=== PATIENT | female | born 1970 | race Caucasian/White ===

== ENCOUNTER 2018-02-11 21:12 | Emergency (ER) | payer OTHER ==
[2018-02-11] MEDS ORDERED: IBUPROFEN 600 MG TABLET (FP) PO ONE ×2 (21:25→21:43)
--- NOTE | 2018-02-11 21:25 | PDOC ---
Rapid Medical Evaluation Chief Complaint: Pain, Acute Time Seen by Provider: 02/11/18 21:20 Medical Evaluation: Allergies Allergy/AdvReac Type Severity Reaction Status Date / Time Penicillins Allergy Verified 04/29/16 13:34 02/11/18 21:21 c/o left foot pain x 10 days. seen at [facility] 3 days ago. pain unrelieved with ibuprofen. last took ibuprofen yesterday PMHX: hypercholestremia, herniated disc PE: Patient alert ox3. left foot pedal edema + pedal pulse + sensation A: left foot pain P: xray ibuprofen
[2018-02-11 21:26] VITALS: BP 102/75; PULSE 85; TEMP 98; BMI 25.1
[2018-02-11] MEDS ORDERED: KETOROLAC TROMETHAMINE 60 MG/2 ML VIAL IM ONE (22:20)
[2018-02-11] MEDS ORDERED: KETOROLAC TROMETHAMINE 60 MG/2 ML VIAL ONE (22:21)
--- NOTE | 2018-02-11 22:23 | PDOC ---
History of Present Illness - General Chief Complaint: Pain Stated Complaint: LT LEG PAIN Time Seen by Provider: 02/11/18 21:20 - History of Present Illness Initial Comments: 37-year-old female presents for evaluation of atraumatic left foot and days she was treated with ibuprofen which really didn't help her. She points to the lateral aspect of the MTPJ as the area of her discomfort. 02/11/18 22:21 Past History - Past Medical History Allergies/Adverse Reactions: Allergies Allergy/AdvReac Type Severity Reaction Status Date / Time Penicillins Allergy Verified 02/11/18 21:22 Home Medications: Ambulatory Orders Quetiapine Fumarate [Seroquel -] 50 mg PO HS 07/21/14 Zolpidem Tartrate [Ambien] 10 mg PO HS 07/21/14 Methylprednisolone [Medrol Dose Osvaldo] 4 mg PO ASDIR #21 tablet 02/11/18 COPD: No Hypercholesterolemia: Yes Other medical history: neck - herniated disc - Surgical History Cholecystectomy: Yes - Immunization History Immunization Up to Date: Yes - Suicide/Smoking/Psychosocial Hx Smoking Status: No Smoking History: Unknown if ever smoked Have you smoked in the past 12 months: No Number of Cigarettes Smoked Daily: 0 Hx Alcohol Use: No Drug/Substance Use Hx: No Review of Systems - Review of Systems Musculoskeletal: Yes: Joint Pain All Other Systems: Reviewed and Negative *Physical Exam - Vital Signs Last Vital Signs Temp Pulse Resp BP Pulse Ox 98 F 85 20 102/75 98 02/11/18 21:22 02/11/18 21:22 02/11/18 21:22 02/11/18 21:22 02/11/18 21:22 - Physical Exam Comments: Left foot skin color and temperature are normal there is no swelling there is tenderness about the fourth and fifth MTPJ and there is pain with motion. There is no other areas of tenderness or thigh in The soft and nontender is a negative Homans sign and she's neurovascularly intact. 02/11/18 22:22 ED Treatment Course - Medications Given in the ED: ED Medications Discontinued Medications Generic Name Dose Route Start Last Admin Trade Name Freq PRN Reason Stop Dose Admin Ibuprofen 600 mg 02/11/18 21:25 02/11/18 21:46 Motrin - PO 02/11/18 21:26 600 mg ONCE ONE Administration Medical Decision Making - Medical Decision Making Give her a shot of Toradol in the emergency room reassess her pain and treat her for gout have her follow-up with her primary care physician the appropriate blood work and treatment options 02/11/18 22:22 02/11/18 22:30 Left foot and ankle x-rays are normal *DC/Admit/Observation/Transfer Diagnosis at time of Disposition: Gout attack - Discharge Dispostion Disposition: HOME Condition at time of disposition: Improved Decision to Admit order: No - Referrals Referrals: Jaret Griffiths [Primary Care Provider] - - Patient Instructions Printed Discharge Instructions: [facility] for Gout Additional Instructions: Since his most likely a gout attack I've given you a prescription for oral steroids which she can start in the morning it is extremely important few to follow-up with her primary care doctor who may decide to do blood work and discuss further treatment options return to the emergency room if you should symptoms worsen or go unresolved prior to follow-up - Post Discharge Activity
[2018-02-11] MEDS ORDERED: PANTOPRAZOLE 40 MG TABLET (FP) PO ONE (22:25)
[2018-02-11] MEDS ORDERED: PANTOPRAZOLE 40 MG TABLET (FP) ONE (22:27)
== END 2018-02-11 22:31 | disposition home or self-care (01) ==
LOC: JERFT 21:12
PROC: 3E0233Z Introduction of Anti-inflammatory into Muscle, Percutaneous Approach (ICD-10-PCS; principal; 2018-02-11)
DX: M10.9 Gout, unspecified (principal); E78.00 Pure hypercholesterolemia, unspecified; Z87.39 Personal history of other diseases of the musculoskeletal system and connective tissue
CPT/HCPCS: 73610-TC-LT-FY; 73630-TC-LT; 99281-25

== ENCOUNTER 2018-09-18 15:28 | Emergency (ER) | payer OTHER ==
[2018-09-18 15:38] VITALS: BP 100/60; PULSE 99; TEMP 98.4; BMI 28.2
--- NOTE | 2018-09-18 15:39 | PDOC ---
Rapid Medical Evaluation Time Seen by Provider: 09/18/18 15:34 Medical Evaluation: Allergies Allergy/AdvReac Type Severity Reaction Status Date / Time Penicillins Allergy Verified 02/11/18 21:22 09/18/18 15:34 The patient presents with a chief complaint of: headache, cough, chest pain, fever, chills, body aches I have performed a brief in-person evaluation of this patient; tachy, coarse bs to rt base Pertinent physical exam findings: ambulatory, in no respiratory distress I have ordered the following: influenza, cxr, motrin 600mg The patient will proceed to the ED for further evaluation. Discharge Disposition - Diagnosis Cough - Referrals Referrals: Jaret Griffiths [Primary Care Provider] - - Patient Instructions - Post Discharge Activity
[2018-09-18] MEDS ORDERED: IBUPROFEN 600 MG TABLET (FP) PO ONE ×2 (15:41→15:57)
--- NOTE | 2018-09-18 17:09 | PDOC ---
History of Present Illness - General Chief Complaint: Cold Symptoms Stated Complaint: Chest Pain Time Seen by Provider: 09/18/18 15:34 History Source: Patient Exam Limitations: No Limitations - History of Present Illness Initial Comments: 09/18/18 17:06 Patient came for evaluation of total body aches, fevers and chills, sore throat pain, moist productive cough of yellow phlegm, ear pain. 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 Did not receive flu shot this year. Timing/Duration: reports: just prior to arrival Severity: reports: mild, moderate Associated Symptoms: reports: fever/chills, headache, muscle aches, nasal congestion, nasal drainage, sore throat Past History - Travel Traveled outside of the country in the last 30 days: No Close contact w/someone who was outside of country & ill: No - Past Medical History Allergies/Adverse Reactions: Allergies Allergy/AdvReac Type Severity Reaction Status Date / Time Penicillins Allergy Verified 09/18/18 16:04 Home Medications: Ambulatory Orders Quetiapine Fumarate [Seroquel -] 50 mg PO HS 07/21/14 Zolpidem Tartrate [Ambien] 10 mg PO HS 07/21/14 Naproxen [Naprosyn -] 500 mg PO BID #30 tablet 09/18/18 Oseltamivir Phosphate [Tamiflu -] 75 mg PO BID #10 capsule 09/18/18 COPD: No Hypercholesterolemia: Yes - Surgical History Cholecystectomy: Yes - Immunization History Immunization Up to Date: Yes - Suicide/Smoking/Psychosocial Hx Smoking Status: No Smoking History: Never smoked Have you smoked in the past 12 months: No Number of Cigarettes Smoked Daily: 0 Hx Alcohol Use: No Drug/Substance Use Hx: No Review of Systems - Review of Systems Able to Perform ROS?: Yes Is the patient limited Serbian proficient: Yes Constitutional: Yes: Symptoms Reported, See HPI, Chills, Fever, Loss of Appetite , Malaise HEENTM: Yes: Symptoms Reported, See HPI, Nose Congestion, Throat Pain Respiratory: Yes: Symptoms reported, See HPI, Cough, Wheezing Musculoskeletal: Yes: Symptoms Reported, Muscle Pain Neurological: Yes: Symptoms reported, See HPI, Headache All Other Systems: Reviewed and Negative *Physical Exam - Vital Signs Last Vital Signs Temp Pulse Resp BP Pulse Ox 98.4 F 99 H 20 100/60 99 09/18/18 15:34 09/18/18 15:34 09/18/18 15:34 09/18/18 15:34 09/18/18 15:34 - Physical Exam General Appearance: Yes: Nourished, Appropriately Dressed, Apparent Distress, Mild Distress, Moderate Distress HEENT: positive: JACIEL, TMs Normal (congested but landmarks easily visualized), Tonsillar Erythema, Nasal Congestion, Rhinorrhea. negative: Tonsillar Exudate Neck: positive: Supple, Lymphadenopathy (R), Lymphadenopathy (L). negative: Tender Respiratory/Chest: positive: Lungs Clear, Normal Breath Sounds. negative: Wheezing Gastrointestinal/Abdominal: positive: Normal Bowel Sounds, Soft. 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 NML intact, Fully Oriented, Alert, Normal Mood/ Affect (pale and tired), Normal Response, Motor Strength 5/5 Moderate Sedation - Procedure Monitoring Vital Signs: Procedure Monitoring Vital Signs Temperature 98.4 F 09/18/18 15:34 Pulse Rate 99 H 09/18/18 15:34 Respiratory Rate 20 09/18/18 15:34 Blood Pressure 100/60 09/18/18 15:34 O2 Sat by Pulse Oximetry (%) 99 09/18/18 15:34 ED Treatment Course - Medications Given in the ED: ED Medications Discontinued Medications Generic Name Dose Route Start Last Admin Trade Name Freq PRN Reason Stop Dose Admin Ibuprofen 600 mg 09/18/18 15:41 09/18/18 15:58 Motrin - PO 09/18/18 15:42 600 mg ONCE ONE Administration Progress Note - Progress Note Progress Note: Upper respiratory infection, classic of symptoms of influenza although rapid testing negative. Will treat with Tamiflu as clinically indicated *DC/Admit/Observation/Transfer Diagnosis at time of Disposition: Influenzal acute upper respiratory infection - Discharge Dispostion Disposition: HOME Condition at time of disposition: Stable Decision to Admit order: No - Prescriptions Prescriptions: Naproxen [Naprosyn -] 500 mg PO BID #30 tablet Oseltamivir Phosphate [Tamiflu -] 75 mg PO BID #10 capsule - Referrals Referrals: Jaret Griffiths [Primary Care Provider] - - Patient Instructions Printed Discharge Instructions: DI for Viral Upper Respiratory Infection -- Adult Additional Instructions: Rest, drink lots of fluids: Teas, water, soups, Pedialyte Saltwater gargles Steamy showers/seem to face break up mucus Old-fashioned treatments help! Avoid contact with others until fevers and cough resolved as this is very contagious Lots of handwashing and good hygiene Continue [id number] medications for symptomatic relief Tylenol or Motrin for fever and pain Take all of Tamiflu as directed: 1 tab every 12 hours for 5 days Followup with private physician in one to 2 days as needed or if worsening Return to emergency department for worsened symptoms, fevers, dehydration Influenza takes between 5 and 7 days for resolution To not participate in any activity, work, or school until fevers and cough are gone for at least one day - Post Discharge Activity
== END 2018-09-18 17:13 | disposition home or self-care (01) ==
LOC: JERFT 15:28
DX: J11.1 Influenza due to unidentified influenza virus with other respiratory manifestations (principal); J06.9 Acute upper respiratory infection, unspecified
CPT/HCPCS: 71046-TC-FY; 87804; 99281-25

== ENCOUNTER 2021-03-02 15:05 | Emergency (ER) | payer OTHER ==
[2021-03-02] MEDS ORDERED: MAG HYDROX/AL HYDROX/SIMETH -MYLANTA- ORAL SUSPENSION PO ONE (15:26)
[2021-03-02] MEDS ORDERED: SODIUM CHLORIDE 1,000 ML IV STA (15:26)
[2021-03-02] MEDS ORDERED: FAMOTIDINE 20 MG/50 ML IVPB 20 MG/50 ML MG IVPB ONE ×2 (15:26→15:34)
[2021-03-02 15:33] VITALS: TEMP 98.3; BMI 24.2
[2021-03-02] MEDS ORDERED: MAG HYDROX/AL HYDROX/SIMETH 30 ML UNIT-DOSE CUP ONE (15:34)
[2021-03-02 16:36] LABS: BASO % 0.3 % (0-2.0); EOS % 0.8 % (0-4.5); HEMATOCRIT 36.8 % (32.4-45.2); HEMOGLOBIN 12.7 GM/dL (10.7-15.3); LYMPH % 18.4 % (8-40); MCH 29.2 pg (25.7-33.7); MCHC 34.4 g/dl (32.0-36.0); MEAN CELL VOLUME 85.1 fl (80-96); MONO % 3.5 % (3.8-10.2); PLATELET COUNT 139 K/MM3 (134-434); RBC 4.33 M/mm3 (3.60-5.2); RDW 15.5 % (11.6-15.6); WHITE BLOOD COUNT 6.8 K/mm3 (4.0-10.0)
[2021-03-02 16:38] LABS: PH,URINE 8.5 (5.0-8.0); URINE APPEARANCE TURBID; URINE BILIRUBIN NEGATIVE (NEGATIVE); URINE COLOR YELLOW; URINE GLUCOSE (UA) NEGATIVE (NEGATIVE); URINE KETONE NEGATIVE (NEGATIVE); URINE LEUK ESTERASE NEGATIVE (NEGATIVE); URINE NITRITE NEGATIVE (NEGATIVE); URINE PROTEIN NEGATIVE (NEGATIVE); URINE UROBILINOGEN 0.2 mg/dL (0.2-1.0)
[2021-03-02 16:55] LABS: CHLORIDE 104 mmol/L (98-107); SODIUM 138 mmol/L (136-145)
[2021-03-02 16:58] LABS: CALCIUM 9.8 mg/dL (8.5-10.1)
[2021-03-02 16:59] LABS: ALBUMIN 4.5 g/dl (3.4-5.0); ANION GAP 8 MMOL/L (8-16); BLOOD UREA NITROGEN 16.8 mg/dL (7-18); CO2 26 mmol/L (21-32); GLUCOSE,RANDOM 117 mg/dL (74-106)
[2021-03-02 17:02] LABS: BILIRUBIN,TOTAL 0.4 mg/dL (0.2-1); CREATININE 0.7 mg/dL (0.55-1.3); SGOT/AST 14 U/L (15-37); SGPT/ALT 23 U/L (13-61); TOT PROT 7.6 g/dl (6.4-8.2)
[2021-03-02 17:05] LABS: ALK PHOS 110 U/L (45-117)
[2021-03-02] MEDS ORDERED: POTASSIUM CHLORIDE ORAL LIQUID 20 MEQ/15 ML PO ONE (17:28)
[2021-03-02] MEDS ORDERED: POTASSIUM CHLORIDE ORAL LIQUID 20 MEQ/15 ML ONE (17:34)
[2021-03-02 19:01] VITALS: BP 127/67; PULSE 79
[2021-03-02 19:07] LABS: MAGNESIUM 2.3 mg/dL (1.8-2.4)
== END 2021-03-02 19:02 | disposition home or self-care (01) ==
LOC: JER 15:05
PROC: 3E033GC Introduction of Other Therapeutic Substance into Peripheral Vein, Percutaneous Approach (ICD-10-PCS; principal; 2021-03-02)
PROC: 3E0337Z Introduction of Electrolytic and Water Balance Substance into Peripheral Vein, Percutaneous Approach (ICD-10-PCS; 2021-03-02)
DX: R10.13 Epigastric pain (principal)
CPT/HCPCS: 36415; 71045-TC-FY; 80053; 81003; 82550; 83690; 83735; 84484; 84703; 85025; 87086; 87186; 93005; 93010; 99285-25

== ENCOUNTER 2023-12-15 17:22 | Emergency (ER) | payer OTHER ==
[2023-12-15 18:19] VITALS: BMI 27.1
[2023-12-15] MEDS ORDERED: METOCLOPRAMIDE HCL INJECTION 10 MG/2 ML VIAL ONE (19:39)
[2023-12-15] MEDS ORDERED: ACETAMINOPHEN INJECTION 100 ML IVPB ONE (19:40)
[2023-12-15] MEDS: SODIUM CHLORIDE 0.9% 500 ML INFUS.BAG IV ONE (19:47)
[2023-12-15] MEDS: METOCLOPRAMIDE HCL INJECTION 10 MG/2 ML VIAL IVPB ONE (19:47)
[2023-12-15] MEDS: ACETAMINOPHEN 1000 MG/100 ML BAG IVPB ONE (19:47)
[2023-12-15 20:01] LABS: THROAT:GRP A STREP DETECTED (NOTDETECTED)
[2023-12-15] MEDS ORDERED: AZITHROMYCIN 500 MG TABLET ONE (20:55)
[2023-12-15] MEDS: AZITHROMYCIN 250 MG TABLET PO ONE (20:59)
[2023-12-15 21:33] VITALS: BP 129/74; PULSE 89; RESP 20; TEMP 98.4
== END 2023-12-15 21:41 | disposition home or self-care (01) ==
LOC: JER 17:22
PROC: 3E033NZ Introduction of Analgesics, Hypnotics, Sedatives into Peripheral Vein, Percutaneous Approach (ICD-10-PCS; principal; 2023-12-15)
PROC: 3E033GC Introduction of Other Therapeutic Substance into Peripheral Vein, Percutaneous Approach (ICD-10-PCS; 2023-12-15)
DX: R50.9 Fever, unspecified (principal); R51.9 Headache, unspecified; J02.0 Streptococcal pharyngitis; Z20.822 Contact with and (suspected) exposure to COVID-19
CPT/HCPCS: 0241U-QW; 87651; 93005; 93010; 99284-25; J0131